=== PATIENT | female | born 1955 | race Native Hawaiian/Other Pacific Islander ===

== ENCOUNTER 2018-12-05 07:38 | Day surgery (SDC) | payer OTHER | END 2018-12-05 11:30 | disposition home or self-care (01) | LOC: OR 07:38 | PROC: 3E0R33Z Introduction of Anti-inflammatory into Spinal Canal, Percutaneous Approach (ICD-10-PCS; principal; 2018-12-05) | PROC: B01BYZZ Fluoroscopy of Spinal Cord using Other Contrast (ICD-10-PCS; 2018-12-05) | DX: M50.123 Cervical disc disorder at C6-C7 level with radiculopathy (principal) | CPT/HCPCS: J1020; J2001; J2250; J2405; J2704 ==

== ENCOUNTER 2018-12-26 08:12 | Day surgery (SDC) | payer OTHER ==
[~2018-12-26] VITALS: Ht 165.1 cm; Wt 105.2 kg
[2018-12-26 10:23] LABS: PLATELET COUNT 183 K/uL (152-353)
[2018-12-26 10:38] LABS: POTASSIUM 4.4 mmol/L (3.6-5.2)
== END 2018-12-26 12:30 | disposition home or self-care (01) ==
LOC: OR 08:12
PROVIDERS: Pain Medicine Interventional Pain Medicine
PROC: 3E0R33Z Introduction of Anti-inflammatory into Spinal Canal, Percutaneous Approach (ICD-10-PCS; principal; 2018-12-26)
PROC: B01BYZZ Fluoroscopy of Spinal Cord using Other Contrast (ICD-10-PCS; 2018-12-26)
DX: M50.123 Cervical disc disorder at C6-C7 level with radiculopathy (principal)
CPT/HCPCS: 80053; 85027; J1020; J2001; J2250; J2405; J2704

== ENCOUNTER 2019-07-30 07:22 | Day surgery (SDC) | payer OTHER | END 2019-07-30 08:44 | disposition home or self-care (01) | LOC: OR 07:22 | PROC: 3E0R33Z Introduction of Anti-inflammatory into Spinal Canal, Percutaneous Approach (ICD-10-PCS; principal; 2019-07-30) | PROC: B01BYZZ Fluoroscopy of Spinal Cord using Other Contrast (ICD-10-PCS; 2019-07-30) | DX: M50.123 Cervical disc disorder at C6-C7 level with radiculopathy (principal) | CPT/HCPCS: J1020 ==

== ENCOUNTER 2019-08-27 07:44 | Day surgery (SDC) | payer OTHER ==
[~2019-08-27] VITALS: Ht 162.6 cm; Wt 87.5 kg
== END 2019-08-27 08:45 | disposition home or self-care (01) ==
LOC: OR 07:44
PROC: 3E0R33Z Introduction of Anti-inflammatory into Spinal Canal, Percutaneous Approach (ICD-10-PCS; principal; 2019-08-27)
PROC: B01BYZZ Fluoroscopy of Spinal Cord using Other Contrast (ICD-10-PCS; 2019-08-27)
DX: M50.123 Cervical disc disorder at C6-C7 level with radiculopathy (principal)
CPT/HCPCS: J1020

== ENCOUNTER 2020-01-07 07:29 | Day surgery (SDC) | payer OTHER ==
[~2020-01-07] VITALS: Ht 30.5 cm; Wt 0.5 kg
== END 2020-01-07 09:28 | disposition home or self-care (01) ==
LOC: OR 07:29
PROC: 3E0R33Z Introduction of Anti-inflammatory into Spinal Canal, Percutaneous Approach (ICD-10-PCS; principal; 2020-01-07)
PROC: B01BYZZ Fluoroscopy of Spinal Cord using Other Contrast (ICD-10-PCS; 2020-01-07)
DX: M50.123 Cervical disc disorder at C6-C7 level with radiculopathy (principal)
CPT/HCPCS: J1020

== ENCOUNTER 2020-03-17 08:08 | Day surgery (SDC) | payer OTHER ==
[~2020-03-17] VITALS: Ht 30.5 cm; Wt 0.5 kg
== END 2020-03-17 09:34 | disposition home or self-care (01) ==
LOC: OR 08:08
PROC: 3E0R33Z Introduction of Anti-inflammatory into Spinal Canal, Percutaneous Approach (ICD-10-PCS; principal; 2020-03-17)
PROC: B01BYZZ Fluoroscopy of Spinal Cord using Other Contrast (ICD-10-PCS; 2020-03-17)
DX: M50.123 Cervical disc disorder at C6-C7 level with radiculopathy (principal)
CPT/HCPCS: J1020